=== PATIENT | female | born 1970 | race Two or more races ===

== ENCOUNTER → 2025-01-05 | Outpatient (CLI) | payer MEDICAID, SELFPAY ==
--- NOTE | 2025-01-05 09:15 | XR_ITS ---
Examination: Diagnostic digital mammography, bilateral Computer aided detection 3-D breast Tomosynthesis, bilateral Date and time of exam: January 05, 2025 0847 hours Compared to mammograms dating to January 05, 2019 INDICATIONS: 10:00 nodule right breast 8 mm on right breast sonogram February 24, 2019 Technique: Nonmagnified MLO, CC views of the breasts to been obtained, reconstructed from 3-D Tomosynthesis images. R2 computer aided detection program utilized for evaluation of suspicious masses and/or abnormal calcifications. 3-D Tomosynthesis images obtained. Findings: Scattered areas of fibroglandular density Stable nodule retroareolar region right breast No interval suspicious masses Impression: BI-RADS Category 2: Benign findings Recommend yearly follow-up mammography.
== END | disposition home or self-care (01) ==
LOC: CDIM 08:39
DX: R92.323 Mammographic fibroglandular density, bilateral breasts (principal)
CPT/HCPCS: 77062; 77066; G0279

== ENCOUNTER → 2025-04-16 | Outpatient (CLI) | payer MEDICAID, SELFPAY ==
--- NOTE | 2025-04-16 15:32 | XR_ITS ---
Examination: Hand, right 3 views Technique: Hand AP, oblique, lateral 3 views Date and time of exam: April 16, 2025 at 1535 hours INDICATIONS: Finger pain beginning 3 months ago FINDINGS: Moderate osteopenia Mild to moderate osteoarthritis distal interphalangeal joints second through fifth digits as well as proximal interphalangeal joints second through fifth digits and interphalangeal joint first digit No erosive arthritis No fractures IMPRESSION: Osteoarthritis as above
== END | disposition home or self-care (01) ==
DX: M19.041 Primary osteoarthritis, right hand (principal)
CPT/HCPCS: 73130

== ENCOUNTER → 2025-05-25 | Outpatient (CLI) | payer MEDICAID, SELFPAY ==
--- NOTE | 2025-05-25 14:22 | XR_ITS ---
Examination: Hand, right 3 views Technique: Hand AP, oblique, lateral 3 views Date and time of exam: May 25, 2025 1445 hours INDICATIONS: Right hand pain beginning 2 months ago. FINDINGS: Significant osteoarthritis distal interphalangeal joints second through fifth digits and interphalangeal joint first digit as well as proximal interphalangeal joint fifth digit Flexion deformity at the proximal interphalangeal joint fifth digit No erosive arthritis No fractures IMPRESSION: Osteoarthritis as above
--- NOTE | 2025-05-25 14:22 | XR_ITS ---
Examination: Wrist, right 3 views Technique: Wrist AP, oblique, lateral 3 views Date and time of exam: May 25, 2025 1445 hours INDICATIONS: Right wrist pain beginning 2 months ago. FINDINGS: Mild osteoarthritis radiocarpal intercarpal and carpometacarpal joints No erosive arthritis. No fracture or avascular necrosis IMPRESSION: Osteoarthritis as above
== END | disposition home or self-care (01) ==
LOC: CDIM 13:40
DX: M19.041 Primary osteoarthritis, right hand (principal); M19.031 Primary osteoarthritis, right wrist
CPT/HCPCS: 73110; 73130

== ENCOUNTER 2025-06-23 18:12 | Emergency (ER) | payer MEDICAID, SELFPAY ==
[2025-06-23 18:15] VITALS: BMI 32.4
--- NOTE | 2025-06-23 18:19 | EKG_ITS ---
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
[2025-06-23 18:42] VITALS: BP 190/107; BP 194/99; PULSE 63; RESP 22; TEMP 37; O2SAT 96
--- NOTE | 2025-06-23 18:45 | XR_ITS ---
Examination: Abdomen sonogram, Limited Date and time of exam: June 23, 2025 1945 hrs. Indications: Epigastric pain beginning 3 hours ago Technique: Real-time connell scale transabdominal sonographic images of the upper abdomen obtained. Findings: Negative for gallstones Normal gallbladder wall. Normal common bile duct 0.3 cm Pancreatic head 3.1 cm Liver 16.0 cm fatty infiltration Normal hepatopedal portal venous oh Patent IVC Impression: Negative for cholelithiasis, negative for cholecystitis Minimal hepatomegaly fatty infiltration throughout the liver
[2025-06-23 18:53] VITALS: BP 190/107; PULSE 63
[2025-06-23] MEDS: ONDANSETRON ODT 4 MG TABRAP PO (18:54)
[2025-06-23 19:15] LABS: Basophils # (Auto) 0.0 Thou/mm3 (0.0-0.2); Basophils % (Auto) 1 % (0-2.5); Eosinophils # (Auto) 0.1 Thou/mm3 (0.0-0.5); Eosinophils % (Auto) 2 % (0-10); Hematocrit 44.4 % (36.0-46.0); Hemoglobin 14.1 g/dL (12.0-16.0); Immature Granulocytes Auto 0.03 Thou/mm3 (0.00-0.00); Lymphocytes # (Auto) 2.7 Thou/mm3 (1.0-4.8); Lymphocytes % (Auto) 35 % (10-50); Mean Corpuscular HGB Conc 31.8 g/dl (31.0-37.0); Mean Corpuscular Hemoglobin 26.0 pg (25.0-35.0); Mean Corpuscular Volume 82 fL (80-100); Monocytes # (Auto) 0.5 Thou/mm3 (0.0-0.8); Monocytes % (Auto) 7 % (0-12); Neutrophils # (Auto) 4.4 Thou/mm3 (1.8-7.7); Neutrophils % (Auto) 56 % (37-80); Nucleated Red Blood Cell # 0.00 Thou/mm3 (0.00-0.00); Nucleated Red Blood Cell % 0 /100 WBC (0); Platelet Count 252 Thou/mm3 (140-440); RDW Standard Deviation 40.8 fL (36.4-46.3); Red Blood Count 5.42 Miln/mm3 (4.00-5.20); White Blood Count 7.8 Thou/mm3 (3.6-11.0)
[2025-06-23 19:30] LABS: Alanine Aminotransferase 40 U/L (10-49); Albumin, Serum 4.6 gm/dL (3.5-5.0); Albumin/Globulin Ratio 1.5 (1.2-2.2); Alkaline Phosphatase 72 U/L (46-116); Amylase 114 U/L (30-118); Anion Gap 9 (7-16); Aspartate Amino Transferase 23 U/L (0-34); BUN/Creatinine Ratio 28 Ratio (12-20); Bilirubin,Total 0.4 mg/dL (0.3-1.2); Blood Urea Nitrogen 22 mg/dL (9-23); Calcium 9.7 mg/dL (8.3-10.6); Calcium (Corrected) 9.7 mg/dL (8.5-10.1); Carbon Dioxide 28.1 mMol/L (20.0-31.0); Chloride 105 mMol/L (98-107); Creatinine (Component) 0.8 mg/dL (0.6-1.3); Estimated Creatinine Clearance 84.2 mL/min (>60); Globulin 3.0 gm/dL (2.3-3.5); Glucose 122 mg/dL (74-106); Osmolality,Calculated 287 (275-295); Potassium 3.8 mMol/L (3.4-5.1); Sodium 142 mMol/L (136-145); Total Protein 7.6 gm/dL (5.7-8.2); Troponin I < 0.002 ng/mL (0.0-0.045); eGFR > 60 See Note
[2025-06-23 19:47] LABS: Collection Type, Urine Clean Catch
[2025-06-23 20:02] LABS: HCG Qualitative,Urine Negative
[2025-06-23 20:03] LABS: Bilirubin,Urine Negative (Negative); Blood,Urine Negative (Negative); Clarity,Urine Clear (Clear/Hazy); Color,Urine Yellow (Lt Yel-Yel); Glucose, Urine Negative (Negative); Ketones,Urine Negative (Negative); Leukocyte Esterase,Urine Negative (Negative); Nitrite,Urine Negative (Negative); PH,Urine 6.0 (5.0-7.0); Protein,Urine Negative (Neg - Trace); RBC,Urine 4 /hpf (0-3); Specific Gravity,Urine 1.028 (1.001-1.035); Squamous Epithelial Cell,Urine 1 /hpf (0-5); Urobilinogen,Urine Negative mg/dL (0.0-1.0); WBC,Urine 1 /hpf (0-5)
--- NOTE | 2025-06-23 20:19 | XR_ITS ---
Examination: CT abdomen and pelvis without contrast. Coronal 3-D reconstructions. Sagittal 2-D reconstructions. Date and time of exam:June 23, 2025, 2047 hrs. Indications: Onset epigastric pain today CTDI: vol (mGy): 9.45 DLP: (mGycm): 593 Technique: Axial images of the abdomen have been obtained, 3 mm slice thickness Intravenous contrast material has not been administered. Low dose protocols were performed. One or more of the following dose reduction techniques were used; automated exposure control, adjustment of the mA and/or KV according to patient size, use of iterative reconstruction technique. Findings: No focal liver or splenic lesions Distended gallbladder No pancreatic or adrenal mass. No renal or ureteral calculi, no hydronephrosis Aorta normal size No bowel obstruction Normal appendix No diverticulitis Absent uterus Urinary bladder intact Impression: Distended gallbladder, recommend gallbladder sonography follow-up Normal appendix No bowel obstruction diverticulitis or free air
[2025-06-23 20:23] VITALS: BP 199/91; PULSE 66; RESP 20; TEMP 36.7; O2SAT 98
--- NOTE | 2025-06-23 20:38 | PC.NURSE ---
Tylenol suspension order canceled and new order for tylenol 1000mg POx1 order per verbal order form provider [place].
[2025-06-23] MEDS: LIDOCAINE VISCOUS 2% 15 ML UDC PO (20:40)
[2025-06-23] MEDS: MG HYD/AL HYD/SIME (Maalox Reg) SUSP 30 ML UDC PO (20:40)
[2025-06-23] MEDS: FAMOTIDINE 20 MG TABLET 40 MG PO (20:40)
[2025-06-23 22:21] VITALS: BP 151/81; PULSE 78
--- NOTE | 2025-06-23 22:24 | PD.EDABDPN ---
ED Abdominal Pain RME/HPI General Chief Complaint: Abdominal Pain Stated complaint: EPIGASTRIC PAIN RADIATES TO BACK x 3 HRS Time seen by provider: 06/23/25 18:29 Arrival date/time: 06/23/25 18:12 This is a case of 55-year-old female with history of hypertension came in in the emergency room due to abdominal pain mainly on the epigastric area radiating to the back for 3 days worse today associated with nausea vomiting patient denies any chest pain shortness of breath or palpitation denies any constipation diarrhea or blood in stool worsening of the symptoms this patient decided to start consult here in the emergency room patient have history of hysterectomy Limitations: no limitations Related Data Home Medications ?Medication ?Instructions ?Recorded ?Confirmed losartan 50 mg tablet 50 mg PO QDAY 04/03/22 04/03/22 Previous Rx's ?Medication ?Instructions ?Recorded famotidine 20 mg tablet 20 mg PO BID #60 tabs 06/23/25 omeprazole 20 mg capsule,delayed 20 mg PO QDAY #30 caps 06/23/25 release ondansetron HCl 4 mg tablet 4 mg PO Q8H PRN nausea and 06/23/25 vomiting #20 tabs Allergies Allergy/AdvReac Type Severity Reaction Status Date / Time tramadol Allergy Severe N/V, Verified 06/23/25 18:18 DIZZINESS, HEADACHE Review of Systems Review of Systems Systems Reviewed: All systems reviewed, normal except as documented Constitutional Constitutional: Reports system reviewed and no additional complaints, except as documented and Reports as per HPI ENT Ears, Nose, Mouth, and Throat: Denies dysphagia and Denies odynophagia Cardiovascular Cardiovascular: Reports system reviewed and no additional complaints, except as documented and Reports as per HPI Respiratory Respiratory: Reports system reviewed and no additional complaints, except as documented and Reports as per HPI Gastrointestinal Gastrointestinal: Reports system reviewed and no additional complaints, except as documented, Reports as per HPI, Reports abdominal pain, Denies belching, Denies bloating, Denies change in bowel habits, Denies change in stool character, Denies coffee ground emesis, Denies constipation, Denies cramping, Denies diarrhea, Denies dyspepsia, Denies dysphagia, Denies early satiety, Denies excessive flatus, Denies fecal incontinence, Denies heartburn, Denies hematemesis, Denies hematochezia, Denies loose stools, Denies melena, Reports nausea, Denies odynophagia, Denies tenesmus and Reports vomiting Genitourinary Genitourinary: Reports system reviewed and no additional complaints, except as documented and Reports as per HPI Musculoskeletal Musculoskeletal: Reports system reviewed and no additional complaints, except as documented and Reports as per HPI Neurologic Neurologic: Reports system reviewed and no additional complaints, except as documented Past Medical History Past Medical History NEUROLOGIC: Negative Neurological Disorders CARDIAC: Positive Cardiac Disorders and Hypertension; Negative Congestive Heart Failure RESPIRATORY: Negative Chronic Obstructive Pulmonary Disease (COPD) GASTROINTESTINAL: Negative Gastrointestinal Disorders GENITOURINARY: Negative Genitourinary Disorders or Renal Disease MUSCULOSKELETAL: Negative Musculoskeletal Disorders ENDOCRINE: Negative Endocrine Disorders or Diabetes Mellitus Type 1 HEMATOLOGIC: Negative Blood Disorders Surgical History SURGICAL: Positive Section (x4) Social History SMOKING STATUS: Never smoker ED Exam General Limitations: Present no limitations General appearance: Present alert, in no apparent distress and other (Patient is awake alert oriented not in distress nontoxic looking well-hydrated well-nourished) Head Head exam: Present atraumatic, normocephalic and normal inspection Eye Eye exam: Present normal appearance, PERRL and EOMI ENT ENT exam: Present normal exam, normal oropharynx and mucous membranes moist Neck Neck exam: Present normal inspection, full ROM and trachea midline; Absent tenderness, meningismus, lymphadenopathy or thyromegaly Chest Chest inspection: Present normal inspection and symmetric chest wall rise; Absent tenderness Respiratory Respiratory exam: Present normal lung sounds bilaterally; Absent respiratory distress, wheezes, stridor, accessory muscle use or prolonged expiratory phase Cardiovascular Cardiovascular exam: Present regular rate, normal rhythm and normal heart sounds; Absent bradycardia, tachycardia, irregular rhythm, systolic murmur or diastolic murmur Abdominal Exam Abdominal exam: Present soft, tenderness (Mild tenderness in epigastric area no guarding no rebound no rigidity negative psoas negative straight or negative Rovsing's negative McBurney's negative Christensen sign negative CVA tenderness) and normal bowel sounds; Absent distention Extremities Exam Extremities exam: Present normal inspection and full ROM Back Exam Back exam: Present normal inspection and full ROM; Absent tenderness, CVA tenderness (R), CVA tenderness (L), muscle spasm, paraspinal tenderness, vertebral tenderness, sciatic notch tenderness (R), sciatic notch tenderness (L), straight leg raise (R) or straight leg raise (L) Neurological Exam Neurological exam: Present alert, oriented X3, CN II-XII intact, normal gait and reflexes normal; Absent motor sensory deficit Psychiatric Psychiatric exam: Present normal affect and normal mood Skin Skin exam: Present warm, dry, intact, normal color and other (Excellent skin turgor) Course Quality Measures none Orders Category Date Time Status EKG (ED ONLY) *Do not use* NOW Care 06/23/25 18:[address] abdomen pelvis wo con Stat Exams 06/23/25 20:19 Completed EKG (ED Only) Stat Exams 06/23/25 18:19 Draft US gall bladder Stat Exams 06/23/25 18:45 Completed Amylase Stat Lab 06/23/25 19:01 Completed CBC Stat Lab 06/23/25 19:01 Completed Comprehensive Metabolic Panel Stat Lab 06/23/25 19:01 Completed HCG Qualitative,Urine Stat Lab 06/23/25 19:18 Completed Troponin I Stat Lab 06/23/25 19:01 Completed Urinalysis Stat Lab 06/23/25 19:18 Completed Acetaminophen Shantal [Tylenol Shantal] Med 06/23/25 20:19 Discontinued 1,000 mg PO Q8H PRN Acetaminophen Tab [Tylenol ES Tab] Med 06/23/25 20:35 Discontinued 1,000 mg PO X1 ONE Famotidine [Pepcid] Med 06/23/25 20:19 Discontinued 40 mg PO X1 ONE Lidocaine 2% Viscous [Xylocaine 2% Viscous] Med 06/23/25 20:19 Discontinued 15 ml PO X1 ONE Ondansetron Odt [Zofran Odt] Med 06/23/25 18:45 Discontinued 4 mg PO X1 ONE cloNIDine HCL [Catapres] Med 06/23/25 18:45 Discontinued 0.2 mg PO X1 ONE mg Hyd/Al Hyd/Anca Susp [Maalox Susp] Med 06/23/25 20:19 Discontinued 30 ml PO X1 ONE Vital Signs Vital signs: Vital Signs Temperature 98.6 F 06/23/25 18:42 Pulse Rate 63 06/23/25 18:42 Respiratory Rate 22 H 06/23/25 18:42 Blood Pressure 190/107 H 06/23/25 18:42 Pulse Oximetry (%) 96 06/23/25 18:42 Oxygen Delivery Method Room Air 06/23/25 18:42 Oxygen saturation is 96% on room air Abdominal Pain MDM MDM Narrative MDM Narrative:: This is a case of 55-year-old female with history of hypertension came in in the emergency room due to abdominal pain mainly on the epigastric area radiating to the back for 3 days worse today associated with nausea vomiting patient denies any chest pain shortness of breath or palpitation denies any constipation diarrhea or blood in stool worsening of the symptoms this patient decided to start consult here in the emergency room patient have history of hysterectomy physical examination patient is awake alert oriented not in distress nontoxic looking well-hydrated well-nourished abdominal exam is benign nonsurgical no guarding no rebound no rigidity mild tenderness in the epigastric area negative psoas negative straight or negative Rovsing's no McBurney's no Christensen sign negative CVA tenderness lungs sound is clear no crackles no rales no retraction no stridor heart normal rate regular rhythm no murmur excellent skin turgor the rest of the physical examination and neurological exam is normal and unremarkable blood test showed no leukocytosis no anemia kidney liver function is normal no electrolytes imbalance urinalysis is normal amylase is normal patient CT scan of the abdomen showed unremarkable except distended gallbladder ultrasound of the gallbladder showed no cholelithiasis no cholecystitis but with minimal hepatomegaly and fatty liver EKG showed normal sinus rhythm negative troponin thus patient is not having cardiac problem at this point patient was given GI cocktail and Zofran which patient condition markedly improved and resolved patient reassessment showed no abdominal pain no recurrence of vomiting abdominal exam is benign nonsurgical no guarding no rebound no rigidity no tenderness at this point patient will be discharged as gastritis patient was advised to see a instructional design technologist for further evaluation and treatment of gastritis hepatomegaly and fatty liver patient was also advised to continue to monitor his blood pressure blood pressure in the ER was elevated at 190/110 clonidine was given patient BP was reassessed after the pain was resolved and noted to be 159/81 at this point patient vital signs stable patient can be discharged home stable condition she was advised to see PCP for reevaluation and for any worsening symptoms recurrence persistent return precaution in the ER was advised Patient was discharged with comfortable condition walking with stable gait. Patient verbalized no further complains explained diagnosis and answered patient question. Patient is comfortable with the proposed management plan including the need to follow up with his/her primary care physician and any specialist if applicable Discussed patient for any urgent condition or worsening sx, He/She needed to go to emergency room immediately or call 911. Patient acknowledge the responsibility to follow up as instructed and to monitor her/his symptoms. For any persistence of the symptoms for more than 3-5 days return precaution advised. Discussed the result of the test and was given printed discharge instruction Patient data External records reviewed:: [facility] previous records Clinical information provided by:: patient Social determinants that could affect healthcare access:: none Patient has the following chronic illnesses:: None How is presenting disease/condition affected by chronic disease/condition?: no chronic disease Evaluation data The following diagnostics were reviewed and interpreted by me:: lab results, radiology exam(s) and EKG tracing(s) Lab and/or radiology exams considered but not ordered:: None Interpretation Summary: None Medications / Prescriptions Medications or Prescriptions considered but not ordered:: Given Medication administrations:: Medication Administration History Discontinued Medications Acetaminophen (Acetaminophen Shantal 325 Mg/10 Ml Udc) 1,000 mg PO Q8H PRN PRN Reason: Fever > 100.4 Stop: 07/23/25 20:18 Acetaminophen (Acetaminophen 500 Mg Tablet) 1,000 mg PO X1 ONE Stop: 06/23/25 20:36 Last Admin: 06/23/25 20:45 Dose: Not Given Documented By: OA Non-Admin Reason: Duplicate Medication on eMAR Al Hydrox/Mg Hydrox/Simethicone (Mg Hyd/Al Hyd/Anca (Maalox Reg) Susp 30 Ml Udc) 30 ml PO X1 ONE Stop: 06/23/25 20:20 Last Admin: 06/23/25 20:40 Dose: 30 ml Documented By: Clonidine (Clonidine Hcl 0.1 Mg Tablet) 0.2 mg PO X1 ONE Stop: 06/23/25 18:46 Last Admin: 06/23/25 18:53 Dose: 0.2 mg Documented By: Famotidine (Famotidine 20 Mg Tablet) 40 mg PO X1 ONE Stop: 06/23/25 20:20 Last Admin: 06/23/25 20:40 Dose: 40 mg Documented By: Lidocaine HCl (Lidocaine Viscous 2% 15 Ml Udc) 15 ml PO X1 ONE Stop: 06/23/25 20:20 Last Admin: 06/23/25 20:40 Dose: 15 ml Documented By: Ondansetron HCl (Ondansetron Odt 4 Mg Tabrap) 4 mg PO X1 ONE; Protocol Stop: 06/23/25 18:46 Last Admin: 06/23/25 18:54 Dose: 4 mg Documented By: Given Consultations Consultation(s) initiated? (list below): No Diagnosis Differential diagnosis abdominal pain: abdominal pain, acute appendicitis, calculus of kidney, constipation, diverticulitis and gastroenteritis Most likely diagnosis given after review of the tests above:: Gastritis Admission Indicated Admission indicated?: not indicated Explain why admission is indicated or not indicated:: Not indicated Admission Request Was there a request for admission?: No Admission Attestation Admission request attestation: Not indicated Disposition Plan Disposition Plan: Discharge Discharge Attestation Discharge Attestation: The patient and all family members were given an opportunity to ask questions and understood the discharge instructions. Discharge instructions specifically effects, indications for sooner follow up or return to the emergency department, and the expected course of current diagnosis. Patient condition: Stable Discharge Plan Plan Patient Disposition: HOME (Self Care) Patient condition on transfer: Stable Prescriptions/Referrals Prescriptions/Med Rec: New ondansetron HCl 4 mg tablet 4 mg PO Q8H PRN (Reason: nausea and vomiting) Qty: 20 0RF famotidine 20 mg tablet 20 mg PO BID Qty: 60 0RF omeprazole 20 mg capsule,delayed release(DR/EC) 20 mg PO QDAY Qty: 30 0RF No Action losartan 50 mg Tablet 50 mg PO QDAY Referrals: Whitney Aviles FNP-C [Primary Care Provider] - In 1 week Problem List Clinical Impression: Abdominal pain, Gastritis, Hepatomegaly, Fatty liver, Uncontrolled hypertension Patient/Caregiver Discharge Instructions Education Materials: Tests for Liver Disease, Abdominal Pain, Nonalcoholic Fatty Liver ..., Controlling High Blood Pressure, ED Gastritis (Adult) Additional Instructions: Follow-up with your primary care physician in 2 days for reevaluation and to be referred to instructional design technologist for further evaluation and treatment of gastritis fatty liver and hepatomegaly and to monitor your liver function you also need to see your primary care physician to monitor your blood pressure and to review your medication for your hypertension check your blood pressure twice a day and return to the emergency room if your blood pressure greater than 160/100 or become symptomatic worsening symptoms recurrence of the symptoms persistence of symptoms or any emergent concern return to the emergency room immediately or call 911 avoid skipping of meals avoid spicy food avoid fatty fried high cholesterol food avoid alcohol soda coffee is advised keep hydrated Print Language: Arabic Stand Alone Forms: [place] Info., Patient Portal Info Letter PA/PHARMACY STUDENT Supervising Physician PA/PHARMACY STUDENT Supervising Physician: Dr. Loomis
== END 2025-06-23 22:28 | disposition home or self-care (01) ==
PROVIDERS: Nurse Practitioner Family; Emergency Provider Family Medicine
DX: K29.70 Gastritis, unspecified, without bleeding (principal); K76.0 Fatty (change of) liver, not elsewhere classified; I10 Essential (primary) hypertension; Z90.710 Acquired absence of both cervix and uterus; Z79.899 Other long term (current) drug therapy; Z88.5 Allergy status to narcotic agent
CPT/HCPCS: 36415; 74176; 76705; 80053; 81001; 81025; 82150; 84484; 85025; 93005; 99284; J3490; Q0162; A9270